=== PATIENT | female | born 1950 | race Caucasian/White ===

== ENCOUNTER 2018-06-14 15:44 | Emergency (ER) | payer MEDICARE ==
[~2018-06-14] VITALS: Ht 157.5 cm; Wt 78.0 kg
[~2018-06-14 15:44] MED LIST: AMLODIPINE BESYL5 MG; APRISO0.375 GM PO; ASPIRIN; B COMPLEX-FOLI1 EACH PO; B COMPLEX-VITA1 EACH; BUSPAR 5 MG TABL5 M1; BUSPIRONE HCL10 MG PO; CALCIUM + D3 E1 EACH PO; CIPRO500 MG PO; COLACE100 MG PO; CYCLOBENZAPRINE10 MG PO; ENDUR-ACIN500 MG PO; FLAGYL500 MG PO; HYDROXYZINE HCL10 M1 PO; LASIX 40 MG TAB40 M2 PO; LEVOTHYROXIN0.088 MG PO; LEVOTHYROXINE0.05 MG; LOPRESSOR100 M1 PO; LOPRESSOR100 MG; LOSARTAN POTASS25 MG; MIRALAX17 GM PO; NEURONTIN600 MG PO; NORVASC10 MG PO; OMEGA 3-6-9 CO1 EACH PO; OMEPRAZOLE 20 M20 M1 PO; OMEPRAZOLE20 M2 PO; OSCIMIN0.125 MG PO; PREDNISONE 20 M20 MG; TRAMADOL 50 MG50 MG PO; ULTRAM 50MG TAB50 MG PO
[2018-06-14] MEDS ORDERED: VENTOLIN HFA 1818 GM INH (16:01)
[2018-06-14] MEDS ORDERED: SPIRONOLACTONE25 M1 PO (16:02)
[2018-06-14] MEDS ORDERED: CRESTOR20 MG PO (16:02)
[2018-06-14] MEDS ORDERED: FOSAMAX 70 MG T70 MG PO (16:02)
[2018-06-14] MEDS ORDERED: PULMICORT0.25 MG/3 INH (16:02)
[2018-06-14] MEDS ORDERED: TRIAMCINOLONE A80 G2 TOP (16:03)
[2018-06-14 16:42] LABS: HEMATOCRIT 40.7 % (37.0-47.0); MCH 33.8 pg (26.0-34.0); MCHC 34.5 g/dL (28.0-37.0); MCV 98.2 fL (80.0-100.0); MPV 8.2 fl. (7.2-11.1); RBC 4.15 mil/uL (4.20-5.00); RDW-CV 13.3 % (10.5-14.5); WBC 9.9 thou/uL (4.0-11.0)
[2018-06-14 16:49] LABS: ANION GAP 8 mmol/L (7-16); BUN 12 mg/dL (7-18); CALCIUM 9.6 mg/dL (8.5-10.1); CHLORIDE 99 mmol/L (98-107); CO2 33 mmol/L (21-32); CREATININE 1.1 mg/dL (0.6-1.3); GLUCOSE 81 mg/dL (70-99); SODIUM 140 mmol/L (136-145)
[2018-06-14 17:00] LABS: ALBUMIN 3.7 g/dL (3.4-5.0); ALKALINE PHOSPHATASE 86 U/L (46-116); LIPASE 78 U/L (73-393); NT-PRO BRAIN NAT PEPTIDE 421 pg/mL (<300); SGOT 18 U/L (15-37); SGPT 27 U/L (30-65); TOTAL BILIRUBIN 0.3 mg/dL (<0.1-1.0); TOTAL PROTEIN 7.7 g/dL (6.4-8.2); TROPONIN-I LEVEL <0.06 ng/mL (<0.06)
[2018-06-14 17:45] LABS: URINE BILIRUBIN NEGATIVE (Negative); URINE BLOOD NEGATIVE (Negative); URINE CLARITY CLEAR; URINE COLOR YELLOW; URINE GLUCOSE-RANDOM NEGATIVE (Negative); URINE KETONES NEGATIVE (Negative); URINE LEUKOCYTES-REFLEX NEGATIVE (Negative); URINE NITRITE-REFLEX NEGATIVE (Negative); URINE PROTEIN NEGATIVE (Negative); URINE SPECIFIC GRAVITY 1.025 (1.005-1.030); URINE UROBILINOGEN 0.2 E.U./dl (0.2-1.0)
[2018-06-14] MEDS ORDERED: CIPRODEX OTIC7.5 ML OTIC (18:57)
[2018-06-14] MEDS ORDERED: CLEOCIN HCL300 MG PO (18:57)
[2018-06-14] MEDS ORDERED: NORCO 5-325 TA1 EACH PO (18:57)
[2018-06-14 20:11] VITALS: BP 142/61
--- NOTE | 2018-06-15 11:23 | EKG ---
[place] [address] ELECTROCARDIOGRAM REPORT Name: HERSON SMALL Room: [facility]#: [id number] Admission: 06/14/18 Attend Phys: Discharge: 06/14/18 Date of : 52 Report #: [id number] THIS REPORT FOR: //name// [facility] ED Test Date: 2018-06-14 Test Time: 16:31:07 Pat Name: HERSON SMALL Department: Room: Gender: F Sales Driver: Jesse GOODSON : 1950 Requested By: Priscila Caldwell Order Number: [id number] MD: Jose Rafael Kay Measurements Intervals [place] Rate: 80 P: 53 [place]: 165 QRS: 24 QRSD: 88 T: 38 QT: 396 QTc: 457 Interpretive Statements Sinus rhythm Abnormal R-wave progression, early transition Compared to ECG 06/03/2015 23:23:01 No significant changes Electronically Signed On 06-15-2018 11:22:59 INCIDENT RESPONSE CONSULTANT by Jose Rafael Kay [email or web address] <ELECTRONICALLY SIGNED> By: Jose Rafael Kay MD, [facility] 06/15/18 1122 1631 30 Jose Rafael Kay MD, FACC /EPI
== END 2018-06-14 20:11 | disposition home or self-care (01) ==
LOC: M.ERS 15:44
PROVIDERS: Nurse Practitioner Family
DX: K64.4 Residual hemorrhoidal skin tags (principal); L03.211 Cellulitis of face; R10.32 Left lower quadrant pain; H60.91 Unspecified otitis externa, right ear; F17.210 Nicotine dependence, cigarettes, uncomplicated; N80.9 Endometriosis, unspecified; I11.0 Hypertensive heart disease with heart failure; I50.9 Heart failure, unspecified; Z88.6 Allergy status to analgesic agent; Z88.2 Allergy status to sulfonamides; Z90.49 Acquired absence of other specified parts of digestive tract; Z90.710 Acquired absence of both cervix and uterus; Z90.721 Acquired absence of ovaries, unilateral

== ENCOUNTER → 2018-10-31 | Outpatient (CLI) | payer OTHER ==
[~2018-10-31] MED LIST changes: +CIPRODEX OTIC7.5 ML OTIC; +CLEOCIN HCL300 MG PO; +CRESTOR20 MG PO; +FOSAMAX 70 MG T70 MG PO; +NORCO 5-325 TA1 EACH PO; +PULMICORT0.25 MG/3 INH; +SPIRONOLACTONE25 M1 PO; +TRIAMCINOLONE A80 G2 TOP; +VENTOLIN HFA 1818 GM INH
== END ==
LOC: M.LAB 12:26
DX: E87.6 Hypokalemia (principal)